=== PATIENT | male | born 1980 | race Caucasian/White ===

== ENCOUNTER 2020-08-18 12:58 | Emergency (ER) | payer OTHER, SELFPAY ==
[2020-08-18 13:08] VITALS: BP 135/89; PULSE 61; RESP 20; TEMP 36.7; O2SAT 100
--- NOTE | 2020-08-18 13:12 | ED.SKABFB ---
HPI - Skin/Abscess/Foreign Bdy General Chief complaint: Skin/Abscess/Foreign Body Stated complaint: shingles Time Seen by Provider: 08/18/20 13:15 Source: patient Mode of arrival: ambulatory Limitations: no limitations History of Present Illness HPI narrative: Chan Jean-Baptiste is a 40 yo male with a PMH of HTN, gout , who comes to express care with complaints of tingling on R chest wall the last few days. He states he had a little discomfort on his thigh also but is really concerned that this may be related to shingles because he states that it feels very similar to what he experienced last time he had an episode of shingles. Incidentally the patient is also had bouts of SVT in the last couple of months and cardiology work-up scheduled for August;he states that he is anxious but attributes it also to the same stress everyone else has with being involved in a pandemic Patient has developed hypertension and now periods of SVT in the last 6 months and he is scheduled to have a cardiology work-up and consult in August Related Data Home Medications Medication Instructions Recorded Confirmed allopurinol 300 mg tablet 300 mg PO DAILY 04/18/20 08/18/20 lisinopril 10 mg PO DAILY 08/18/20 08/18/20 metoprolol succinate 25 mg PO DAILY 08/18/20 08/18/20 Allergies Allergy/AdvReac Type Severity Reaction Status Date / Time Penicillins Allergy Unknown Unknown Verified 04/18/20 14:29 Review of Systems Review of Systems: Narrative: CONSTITUTIONAL: Denies fever, chills, sweats. EYES: Denies visual changes, redness, discharge. ENT: Denies rhinorrhea, congestion, sore throat, otalgia. CARDIOVASCULAR: Denies chest pain, palpitations, edema. RESPIRATORY: Denies dyspnea, wheezing, cough GASTROINTESTINAL: Denies abdominal pain, nausea, vomiting, diarrhea. GENITOURINARY: Denies dysuria, hematuria, abnormal discharge SKIN: Denies rash or itching. Has hypersensitivity on area of skin at rib 3 through 5 on the right side, some uncomfortable feeling on the right NEUROLOGIC: Denies numbness, or focal weakness. PSYCHIATRIC: Denies anxiety or depression. [facility] Past Medical History Medical History Gout Healthy adult HTN (hypertension) SVT (supraventricular tachycardia) Surgical History Surgical History Hx of tonsillectomy Family History Family History Father Hypertension Sibling Hypertension Social History Social History Smoking status: Never smoker Second hand tobacco smoke exposure: No Alcohol intake: current Substance use: never Substance use type: does not use Gender identity (if verbalized by the patient): Male Comments At time of signature, I agree with nursing past medical, surgical, social and family history. There is no relevant family history pertinent to the presenting complaint. Exam Narrative: Exam Narrative: GENERAL: This is a well-nourished, well-developed patient, in mild distress. HEAD: normocephalic, atraumatic. EYES: PERRL. Sclera clear/white. Vision is grossly intact. EARS: External ears normal, auditory canals clear and without drainage, TMs normal without perforation. Hearing grossly intact. NOSE: External nose normal without nasal discharge, nares without redness, no rhinorrhea. THROAT: Mucous membranes moist, posterior pharynx NECK: Neck supple, non-tender CARDIOVASCULAR: Regular rate and rhythm without murmurs, gallops, or rubs. RESPIRATORY: Clear to auscultation. Breath sounds equal bilaterally. No wheezes, rales, or rhonchi. GASTROINTESTINAL: Abdomen soft, non-tender, SKIN: warm, intact with no suspicious lesions or rash, good texture and turgor.has tingling and mild tenderness R chest wall, ribs 3-4, similar feeling R upper thigh. Is not reproducible. NEURO: awake, alert, and orien
[2020-08-18 13:27] VITALS: BP 135/89; PULSE 61; RESP 20; TEMP 36.7; O2SAT 100
== END 2020-08-18 13:42 | disposition home or self-care (01) ==
PROVIDERS: Emergency Provider Nurse Practitioner; PCP Family Medicine
DX: R20.0 Anesthesia of skin (principal); R20.2 Paresthesia of skin; M10.9 Gout, unspecified; I10 Essential (primary) hypertension
CPT/HCPCS: 99213; G0463

== ENCOUNTER 2023-01-06 13:26 | Emergency (ER) | payer OTHER, SELFPAY ==
[2023-01-06 13:49] VITALS: BP 147/82; PULSE 65; RESP 18; TEMP 36.2; O2SAT 98
--- NOTE | 2023-01-06 14:08 | ED.EAR ---
HPI - Ear Problem General Chief complaint: Ear Stated complaint: bilateral ear pain Time Seen by Provider: 01/06/23 14:03 Source: patient and RN notes reviewed Mode of arrival: ambulatory Limitations: no limitations History of Present Illness HPI Narrative: 42 a male presents concern for bilateral ear pain, worse on the right. He reports symptoms started several days ago. He denies nasal congestion, rhinorrhea, sore throat, fever, drainage from the ear. He has been using Flonase. MD Complaint: ear pain Related Data Home Medications Medication Instructions Recorded Confirmed allopurinol 300 mg tablet 300 mg PO DAILY 04/18/20 01/06/23 lisinopril 10 mg tablet 10 mg PO DAILY 08/18/20 01/06/23 Allergies Allergy/AdvReac Type Severity Reaction Status Date / Time Penicillins Allergy Unknown Unknown Verified 01/06/23 14:09 Review of Systems Review of Systems: CONSTITUTIONAL: Denies malaise, chills, sweats, or fever. EYES: Denies visual changes, redness, or discharge. ENT: Denies rhinorrhea, congestion, sinus pain, and sore throat. Reports bilateral ear pain CARDIOVASCULAR: Denies chest pain, palpitations, or edema. RESPIRATORY: Denies cough. Denies dyspnea. GASTROINTESTINAL: Denies abdominal pain, nausea, vomiting, diarrhea SKIN: Denies rash or itching. MUSCULOSKELETAL: Denies myalgia. NEUROLOGIC: Denies headache. All systems reviewed & are unremarkable except as noted in HPI and below PMFSH Past Medical History Medical History Gout Healthy adult HTN (hypertension) SVT (supraventricular tachycardia) Surgical History Surgical History Hx of tonsillectomy Family History Family History Father Hypertension Sibling Hypertension Social History Social History Smoking status: Never smoker Second hand tobacco smoke exposure: No Alcohol intake: current Substance use: never Substance use type: does not use Gender identity (if verbalized by the patient): Male Comments At time of signature, agree with nursing past medical, surgical, social and family history. There is no relevant family history pertinent to the presenting complaint Exam Narrative: GENERAL: Well-appearing, well-nourished, and in no acute distress. HEAD: Normocephalic EYES: PERRLA, conjunctivae clear ENT: Nares clear, turbinates edematous and erythematous, clear discharge. Mucous membranes moist. TM pearly goldsmith with dull light reflex bilaterally; no tragal tenderness. Oropharynx not erythematous without lesions. Tonsils not enlarged and without exudate, no drooling, no hoarseness, no trismus, uvula midline. NECK: Supple. No lymphadenopathy CHEST: Clear to auscultation, breath sounds equal. No wheezing, rhonchi, rales, or stridor. No respiratory distress, speaks in full sentences. HEART: Regular rate and rhythm. No murmur heard. SKIN: Warm, dry, no rash. NEURO: Alert and oriented x3. PSYCH: Normal mood and affect Course Course Emergency Course: Patient is aware of diagnosis, understands and agrees to treatment plan. Anticipatory guidance given. Patient agrees to follow-up as directed and is aware of reasons to seek care at the emergency department. Portions of this record may have been created with voice recognition software Level of Care: Express Care Visit Vital Signs Vital signs: Vital Signs Temperature 97.1 F L 01/06/23 13:49 Pulse Rate 65 01/06/23 13:49 Respiratory Rate 18 01/06/23 13:49 Blood Pressure 147/82 H 01/06/23 13:49 Pulse Oximetry 98 01/06/23 13:49 Oxygen Delivery Room Air 01/06/23 13:49 Temperature 97.1 F L 01/06/23 13:49 Pulse Rate 65 01/06/23 13:49 Respiratory Rate 18 01/06/23 13:49 Blood Pressure 147/82 H 01/06/23 13:49 Pulse Oximetry 98 01/06/23
== END 2023-01-06 14:17 | disposition home or self-care (01) ==
PROVIDERS: Emergency Provider Nurse Practitioner; PCP Family Medicine
DX: H73.892 Other specified disorders of tympanic membrane, left ear (principal); M10.9 Gout, unspecified; I10 Essential (primary) hypertension
CPT/HCPCS: 99213; G0463

== ENCOUNTER 2023-03-19 13:56 | Emergency (ER) | payer OTHER, SELFPAY ==
[2023-03-19 14:05] VITALS: BP 137/80; PULSE 59; RESP 16; TEMP 36.3; O2SAT 97
--- NOTE | 2023-03-19 14:27 | ED.URI ---
HPI - URI/Sore Throat General Chief Complaint: Upper Respiratory Infection Stated Complaint: Cough Time Seen by Provider: 03/19/23 14:15 Source: patient Mode of arrival: ambulatory Limitations: no limitations History of Present Illness HPI Narrative: Chan is a 42-year-old male patient presenting to the clinic today with complaints of a cough, runny nose, headache, and slight sore throat x4 days. He denies any fever or chills. Did at home COVID test and it was negative. Is concerned that he may have strep. MD elicited complaint: sore throat and nasal congestion Related Data Home Medications Medication Instructions Recorded Confirmed allopurinol 300 mg tablet 300 mg PO DAILY 04/18/20 03/19/23 lisinopril 10 mg tablet 10 mg PO DAILY 08/18/20 03/19/23 Allergies Allergy/AdvReac Type Severity Reaction Status Date / Time Penicillins AdvReac Mild Hives Verified 03/19/23 13:58 Review of Systems Review of Systems: Pertinent positives per HPI. Patient denies any fever, chills, rash, headache, visual changes, dizziness, cough, shortness of breath, chest pain, palpitations, nausea, vomiting, diarrhea, constipation, abdominal pain, or any urinary issues. PMFSH Past Medical History Medical History Gout Healthy adult HTN (hypertension) SVT (supraventricular tachycardia) Surgical History Surgical History Hx of tonsillectomy Family History Family History Father Hypertension Sibling Hypertension Social History Social History Smoking status: Never smoker Second hand tobacco smoke exposure: No Alcohol intake: current Substance use: never Substance use type: does not use Gender identity (if verbalized by the patient): Male Comments At the time of my signature, I reviewed and agree with the nursing past medical, surgical, social, and family history. There is no relevant family history pertinent to the patient complaint. Exam Narrative: General: Well-developed, well nourished, in no apparent distress Head: Normocephalic, atraumatic Eyes: Pupils equally round and reactive to light bilaterally, EOM intact, sclera and conjunctive clear, no discharge, lids normal Ears: TMs intact and clear, ear canals clear, no drainage, grossly hearing normal. Nose: Nares patent, clear nasal discharge, no inflammation, no sinus tenderness. Mouth: Oral pharynx red without lesions or masses, good dentition, MMM. Neck: Supple, trachea midline, no enlargement of anterior or posterior cervical nodes, no thyroid masses or goiter palpable. Cardio: Regular rate and rhythm, s1 and s2 normal, no murmur appreciated. Resp: Clear to auscultation bilaterally, no rhonchi, rales, wheezing or rubs Course Course Emergency Course: Portions of this record may have been created with voice recognition software. Level of Care: Express Care Visit Vital Signs Vital signs: Vital Signs Temperature 36.3 C L 03/19/23 14:05 Pulse Rate 59 L 03/19/23 14:05 Respiratory Rate 16 03/19/23 14:05 Blood Pressure 137/80 03/19/23 14:05 Pulse Oximetry 97 03/19/23 14:05 Oxygen Delivery Room Air 03/19/23 14:05 Temperature 36.3 C L 03/19/23 14:05 Pulse Rate 59 L 03/19/23 14:05 Respiratory Rate 16 03/19/23 14:05 Blood Pressure 137/80 03/19/23 14:05 Pulse Oximetry 97 03/19/23 14:05 Oxygen Delivery Room Air 03/19/23 14:05 Vital signs reviewed MDM - URI/Sore Throat MDM Narrative Medical decision making narrative: At the time of visit patient is resting comfortably on the exam table. Patient appears to be nontoxic. Strep test was negative in the clinic today. I suspect patient has URI/pharyngitis. Supportive measures were discussed with the patient and they voiced understanding di
== END 2023-03-19 14:31 | disposition home or self-care (01) ==
PROVIDERS: Emergency Provider Nurse Practitioner Family; PCP Family Medicine
DX: B34.9 Viral infection, unspecified (principal); J06.9 Acute upper respiratory infection, unspecified; J02.9 Acute pharyngitis, unspecified; M10.9 Gout, unspecified; I10 Essential (primary) hypertension
CPT/HCPCS: 87081; 87880; 99213; G0463

== ENCOUNTER 2024-07-15 18:44 | Emergency (ER) | payer OTHER, SELFPAY ==
--- NOTE | ~2024-07-15 | XR_ITS ---
XR finger 3rd RT min 2V Ordering provider: Delano Law APRN History: . distal finger injury/smash . Comparison: None. FINDINGS: BONES: No acute fracture or dislocation. JOINT SPACES: Normal. SOFT TISSUES: Small radiopaque foreign bodies seen in the tip of the soft tissues of the distal phala nx of the middle finger. Clinical correlation advised. IMPRESSION: No acute osseous abnormality. Foreign body in the soft tissues of the middle finger distal phalanx area. Reviewed, dictated and finalized at location A.
--- NOTE | 2024-07-15 18:46 | ED_ITS ---
HPI - Extremity Injury (Upper) General Chief Complaint: Extremity Problem,Nontraumatic Stated Complaint: finger nail injury Time Seen by Provider: 07/15/24 18:46 Source: patient Mode of arrival: ambulatory Limitations: no limitations History of Present Illness HPI narrative: Chan is a 44-year-old male patient presenting to the clinic today with complaints of a right middle distal finger injury. 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 Her stones and smashed his finger in between 2 of the stones. Has a skin avulsion to the tip of the right 3rd finger without nail involvement. Bleeding is controlled. Tetanus is not up today. Rates his pain currently a 1 at 10 Related Data Allergies Allergy/AdvReac Type Severity Reaction Status Date / Time Penicillins Allergy Mild Hives Verified 07/15/24 18:53 Review of Systems Review of Systems: Pertinent positives per HPI. Patient denies any fever, chills, rash, headache, visual changes, dizziness, cough, shortness of breath, chest pain, palpitations, nausea, vomiting, diarrhea, constipation, abdominal pain, or any urinary issues. PMFSH Past Medical History Medical History Dysfunction of both eustachian tubes Essential (primary) hypertension Gout History of paroxysmal supraventricular tachycardia Mixed hyperlipidemia Recurrent otitis media of both ears Surgical History Surgical History History of hand surgery Middle finger of right hand in 11/1997 History of radiofrequency ablation (RFA) procedure for cardiac arrhythmia 2021 Hx of tonsillectomy 1984 Family History Family History Father Hypertension Sibling Hypertension Mother Hypertension Grandparent Cerebrovascular accident Social History Social History Smoking status: Never smoker Second hand tobacco smoke exposure: No Alcohol intake: current Alcohol use details: About 1-2 drinks per month Substance use: never Substance use type: does not use Do You Feel Safe in your Home?: Yes Lack of Transportation: No Lack of Food: Never True Current Housing: I Have Housing Concerned About Future Housing: No Difficulty Paying Gas/Electric Bills: No Difficulty Paying for Meds: No Currently Unemployed: No Education: Master's Degree or Higher Difficulty w/ Childcare or Family Care: No Living arrangements: with family Occupation/Education: occupation 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 There is no relevant family history pertinent to the patient complaint. Exam Narrative: General: Well-developed, well nourished, in no apparent distress Head: Normocephalic, atraumatic. Cardio: Regular rate and rhythm, s1 and s2 normal, no murmur appreciated. Resp: Clear to auscultation bilaterally, no rhonchi, rales, wheezing or rubs. Musculoskeletal: No deformity,tender to palpation over the distal right 3rd finger with skin flap laceration, grossly normal range of motion, muscle strength strong and equal, peripheral pulse strong, no edema, no cyanosis, normal gait and station Course Course Emergency Course: Portions of this record may have been created with voice recognition software. Level of Care: Express Care Visit Vital Signs Vital signs: Vital Signs Temperature 36.4 C 07/15/24 18:53 Pulse Rate 60 07/15/24 18:53 Respiratory Rate 18 07/15/24 18:53 Blood Pressure 122/71 07/15/24 18:53 Pulse Oximetry 100 07/15/24 18:53 Oxygen Delivery Room Air 07/15/24 18:53 Temperature 36.4 C 07/15/24 18:53 Pulse Rate 60 07/15/24 18:53 Respiratory Rate 18 07/15/24 18:53 Blood Pressure 122/71 07/15/24 18:53 Pulse Oximetry 100 07/15/24 18:53 Oxygen Delivery Room Air 07/15/24 18:53 Vital signs reviewed Procedures Laceration Laceration 1: Date: 07/15/24 Site: hand (3rd finger-right) Side (If applicable): right Size (cm): 1.5 Description: flap and irregular Depth: simple, single layer Local Anesthetic: lidocaine 1% Amount of anesthesia used (mL): 4 Pre-repair: wound explored, irrigated and irrigated extensively ====== Skin Level ====== Skin layer closed with: nylon Size (cm): 5-0 Number of sutures: 6 Technique: simple, interrupted ====== Subcutaneous Layer ====== ====== Muscle Layer ====== ====== Tendon Layer ====== Dressing: Verbal consent obtained for laceration repair. Risk and benefits explained and patient voiced understanding. Area was cleansed with antiseptic wound wash and a 27 gauge needle was then used to instill (for) ml of 1% lidocaine without epi into the distal PIP joint to create a digital block. Area was prepped and draped using sterile technique. A 5-0 suture on a p needle was used to place (6) interrupted sutures bringing the wound edges together- well approximated. Patient tolerated procedure well. Sterile dressing applied. MDM - Extremity Injury (Upper) MDM Narrative Medical decision making narrative: At the time of visit patient is resting comfortably on the exam table. Patient appears to be nontoxic. Diagnostics: X-ray shows no sign of fracture or malalignment of the right 3rd finger however there is some foreign bodies in the soft tissue of the skin Medications: Tdap 0.5 mL IM given in the clinic today Procedures: Laceration repair was performed in the clinic today. Wound was irrigated and foreign bodies were removed. Six interrupted sutures were placed for wound closure Plan: Patient has a right middle distal finger laceration. Laceration repair was performed. Wound edges were brought together well approximate. Foreign bodies were removed prior to suturing. Supportive measures were discussed with the patient and they voiced understanding discharge instructions and agrees to treatment plan. Return precautions reviewed Differential Diagnosis Differential diagnosis: Likely finger sprain, dislocation of finger and other (Tuft fracture, skin avulsion, laceration) Discharge Plan Discharge Clinical Impression: Finger laceration Qualifiers: Encounter type: initial encounter Finger: middle finger Damage to nail status: without damage Foreign body presence: without foreign body Laterality: right Qualified Code(s): S61.212A - Laceration without foreign body of right middle finger without damage to nail, initial encounter Patient Disposition: Home Condition: Stable Instructions: Antibiotic Form, Finger Laceration (ED) Additional Instructions: Tdap given in the clinic today X-ray was negative for any sign of fracture or malalignment but did show some small foreign body. This was irrigated out and cleansed before sutures Leave bandage on for 24 hours then may remove and apply band aide covering as needed. Keep wound clean and dry Skin sutures out in 7 days. Watch for signs and symptoms of infection- redness, streaking, swelling, purulent discharge, or increase in pain. Follow up with your PCP for suture removal or return to the Express care. Patient Language: Bermudian Prescriptions: No Action lisinopril 10 mg tablet 10 mg PO DAILY Qty: 90 2RF allopurinol 300 mg tablet 300 mg PO DAILY Qty: 90 2RF Follow-up/Referrals: Alberto Fields MD [Primary Care Provider] - Time of Disposition: 19:46 Quality NIHSS Nursing Documentation ED NIHSS nursing documentation: reviewed/agree
--- OUTSIDE RECORDS SUMMARY | 2024-07-15 18:47 | XMS_ITS | Continuity of Care Document ---
Author Organization [facility] Address [address] [facility] [address] [place] [address] Phone Care Team Providers Care Supervisor Major Appliance Assembly Name Role Phone Sterling Carranza PT Unavailable Unavailable Procedures Procedure Date Therapeutic Activities Neuromuscular Re-Ed Therapeutic Exercise Therapeutic Activities Neuromuscular Re-Ed Therapeutic Exercise Therapeutic Activities Neuromuscular Re-Ed Therapeutic Exercise PT Re-evaluation Therapeutic Activities Neuromuscular Re-Ed Therapeutic Exercise Therapeutic Activities Neuromuscular Re-Ed Therapeutic Exercise Therapeutic Activities Neuromuscular Re-Ed Therapeutic Exercise PT Evaluation Low Complexity Therapeutic Activities Neuromuscular Re-Ed Therapeutic Exercise Advance Directives Directive Yes / No Effective Date File Name No Information Encounters Encounter Description Practice Location Reason(s) For Visit Diagnoses Date Provider Providers Copied on Encounter [facility] [address], [place], [place], [id number], tel:[phone] [facility] No Information Dillon Katz. . Referring Provider: [facility] [address], [place], [place], [id number], tel:[phone] [facility] No Information Dillon Celestin . Referring Provider: [facility]. [address], [id number], tel:[phone] [facility] No Information Dillon Celestin . Referring Provider: [facility]. [address], [id number], tel:[phone] [facility] No Information Dillon Celestin . Referring Provider: [facility]. [address], [id number], tel:[phone] [facility] No Information Dillon Celestin . Referring Provider: [facility]. [address], [id number], tel:[phone] [facility] No Information Dillon Celestin . Referring Provider: [facility]. [address], [id number], tel:[phone] [facility] No Information Dillon Celestin . Referring Provider: [facility]. Family History Family Member Type Diagnosis Age At Onset No Information Payers Payer name Insurance type Covered constitution party ID Authoriza tion(s) [employer] CI [id number] Social History Type Description Quantity Date Captured Comments Sex Male Smoking Status No Information Chief Complaint And Reason For Visit No Information Reason For Referral Reason For Referral No Information History Of Present Illness Encounter Date Complaint History Of Prese nt Illness No Information Functional Status Date Functional Assessmen t No Information Instructions Date Instruction Additional Infor mation No Information Assessments Type Assessment Date No Information Patient Care Teams Name Effective Dates (start - stop) Status Members No Information
--- OUTSIDE RECORDS SUMMARY | 2024-07-15 18:47 | XMS_ITS | Clinical Summary ---
Author Organization [facility] Address [address] [facility] [place] [address] Phone Care Team Providers Care Job Developer Name Role Phone Unavailable Primary Care Provider Unavailabl e Allergies Active Allergy Reactions Criticality Noted Date Comments Penicillins Rash Medium 03/21/2017 Medications allopurinoL (ZYLOPRIM) 100 mg tablet Take 25 mg by mouth daily. 06/04/2020 Active lisinopriL (PRINIVIL) 10 mg tablet Take 10 mg by mouth daily. 06/04/2020 Active metoprolol tartrate (LOPRESSOR) 25 mg tablet Take 25 mg by mouth daily. 06/04/2020 Active Social History Tobacco Use Types Packs/Day Years Used Date Smoking Tobacco: Never Smokeless Tobacco: Never Alcohol Use Standard Drinks/Week Comments Yes 2 (1 standard drink = 0.6 oz pur e alcohol) Sex and Gender Information Value Date Recorded Sex Assigned at Not on file Legal Sex Male 4:40 PM CDT Gender Identity Not on file Sexual Orientation Not on file Last Filed Vital Signs Vital Sign Reading Time Taken Comments Blood Pressure 113/85 06/04/2020 10:45 PM CDT Pulse 75 06/04/2020 10:45 PM CDT Temperature - - Respiratory Rate 20 06/04/2020 10:45 PM CDT Oxygen Saturation - - Inhaled Oxygen Concentration - - Weight - - Height - - Body Mass Index - - Plan of Treatment Health Maintenance Due Date Last Done Comments DTAP/TDAP/TD VACCINES (1 - Tdap) 1997 HEPATITIS B VACCINES (1 of 3 - 19+ 3-dose series) 1997 COLORECTAL SCREENING 06/19/2023 Colorectal Cancer Screening 06/19/2023 FIT-DNA Q 3 years 06/19/2023 FIT/FOBT Q 1 year 06/19/2023 Flex Sig/CT Colonography Q 5 years 06/19/2023 INFLUENZA VACCINE (#1) 2023 HPV VACCINES Aged Out No longer eligi ble based on patient's age to complete this topic
--- OUTSIDE RECORDS SUMMARY | 2024-07-15 18:47 | XMS_ITS | Clinical Summary ---
Author Organization [facility] [address] Address [address] [place] [address] Care Team Providers Care Movie Theater Manager Name Role Phone Alberto Fields MD Primary Care Provider [phone] Allergies Active Allergy Reactions Criticality Noted Date Comments Penicillins Rash Medium 06/05/2016 Medications allopurinoL (ZYLOPRIM) 100 mg tablet Take 25 mg by mouth daily Active lisinopriL (PRINIVIL,ZESTRI L) 10 mg tablet Take 10 mg by mouth daily Active aspirin 81 mg enteric coated tabletIndication s:prevention of thrombosis Take 1 tablet (81 mg total) by mouth daily 90 tablet 11/18/2020 Active Active Problems Problem Noted Date Diagnosed Date SVT (supraventricular tachycardia) 09/03/2020 Assessment & Plan (10/30/2020 2:21 PM CDT): Narrow complex short RP tachycardia. Differential diagnosis includes AVNRT, AVRT (with concealed retrograde accessory pathway conduction), or atrial tachycardia/flutter. We discussed options for management, and the patient is specifically interested in catheter ablation. We discussed the specific risks, including vascular injury, hematoma, perforation, stroke, heart attack, and AV fouzia injury. I estimated his risk of these events to be very low. We discussed the benefits of ablation, and I estimated a 95-98% chance of freedom from arrhythmia going forward. The patient would like to proceed, and my office will make the appropriate arrangements. Medical History Medical History Date Comments Hypertension Kidney stones Family History Medical History Relation Name Comments Hypertension Brother Hypertension Father Diabetes Mother Hypertension Mother Relation Name Status Comments Brother Alive Father Alive Mother Alive Sister Alive Social History Tobacco Use Types Packs/Day Years Used Date Smoking Tobacco: Never Smokeless Tobacco: Never AUDIT-C Answer Date Recorded Q1: How often do you have a drink containing alc ohol? 2-3 times a week 11/18/2020 Q2: How many drinks containi ng alcohol do you have on a typical day when you are drinking? 1 or 2 11/18/2020 Frequency of Binge Drinking Not on file 10/22 Personal Safety Answer Date Recorded Getting School Help Needed Not on file 06/05 Sex and Gender Information Value Date Recorded Sex Assigned at Not on file Legal Sex Male 3:52 PM CDT Gender Identity Not on file Sexual Orientation Not on file Obstetrics History Last Filed Vital Signs Vital Sign Reading Time Taken Comments Blood Pressure 116/78 12/05/2020 1:20 PM CDT Pulse 61 12/05/2020 1:20 PM CDT Temperature 35.2 C (95.4 F) 11/18/2020 9:43 AM CDT Respiratory Rate 22 11/18/2020 4:30 PM CDT Oxygen Saturation 97% 12/05/2020 1:20 PM CDT Inhaled Oxygen Concentration - - Weight 101.2 kg (223 lb) 12/05/2020 1:20 PM CDT Height 190.5 cm (6' 3 ) 12/05/2020 1:20 PM CDT Body Mass Index 27.87 12/05/2020 1:20 PM CDT Plan of Treatment Not on file Medical Devices Implanted Type Area Cafeteria Cashier Device Identifier Shelf Expiration Date Model / Serial / Lot [email or web address] [id number] System 6-12fr Mvp Venous Closure Vascade - [id number] - [id number] Implanted:Qty: 1 on 11/18/2020 by Lalo Terrell MD at [facility] [employer] 08/26/2022 800-612C-1 0U / [id number] / [id number] [employer] [id number] System 6-12fr Mvp Venous Closure Vascade - [id number] - [id number] Implanted:Qty: 1 on 11/18/2020 by Lalo Terrell MD at [facility] [employer] 09/09/2022 800-612C-1 0U / [id number] / [id number] [employer] [id number] Device Closure Vascade Od5 Fr Femoral Artery - [id number] - [id number] Implanted:Qty: 1 on 11/18/2020 by Lalo Terrell MD at [facility] [employer] 08/12/2022 700-500DX- 05U / [id number] / [id number] [employer] [id number] System 6-12fr Mvp Venous Closure Vascade - [id number] - [id number] Implanted:Qty: 1 on 11/18/2020 by Lalo Terrell MD at [facility] [employer] 08/26/2022 800-612C-1 0U / [id number] / [id number] Insurance [facility] Care Teams Movie Theater Manager Relationship Specialty Start Date End Date Alberto Fields MD [address] [place] [id number] PCP - General Family Medicine 07/24/20
--- OUTSIDE RECORDS SUMMARY | 2024-07-15 18:47 | XMS_ITS | Referral Summary ---
Author Organization [facility] [place] [address] Address [address] [place] [address] Care Team Providers Care Harness Maker Name Role Phone Alberto Fields MD Primary Care Provider [phone] Allergies Active Allergy Reactions Criticality Noted Date [...] my office will make the appropriate arrangements. Social History Tobacco Use Types Packs/Day Years [...] on file Medical Devices Implanted Type Area Industrial Maintenance Manager Device Identifier Shelf Expiration Date Model / Serial / Lot [employer] [id number] System 6-12fr Mvp Venous Closure Vascade - [id number] - [id number] Implanted:Qty: 1 on 11/18/2020 by Lalo Terrell MD at [facility] [employer] 08/26/2022 800-612C-1 0U / [id number] / [id number] [employer] [id number] System 6-12fr Mvp Venous Closure Vascade - [id number] - [id number] Implanted:Qty: 1 on 11/18/2020 by Lalo Terrell MD at [facility] [employer] 09/09/2022 800-612C-1 0U / [id number] / [id number] [employer] [id number] Device Closure Vascade Od5 Fr Femoral Artery - [id number] - [id number] Implanted:Qty: 1 on 11/18/2020 by Lalo Terrell MD at [facility] [employer] 08/12/2022 700-500DX- 05U / [id number] / [id number] [employer] [id number] System 6-12fr Mvp Venous Closure Vascade - [id number] - [id number] Implanted:Qty: 1 on 11/18/2020 by Lalo Terrell MD at [facility] [employer] 08/26/2022 800-612C-1 0U / [id number] / [id number] Insurance [facility] Care Teams Harness Maker Relationship Specialty Start Date End Date Alberto Fields MD [address] [place] [id number] PCP - General Family Medicine 07/24/20
--- OUTSIDE RECORDS SUMMARY | 2024-07-15 18:47 | XMS_ITS | Clinical Summary ---
Author Organization [facility] Address [address] [place] [address] Care Team Providers Care Rail Express Clerk Name Role Phone Unavailable Primary Care Provider Unavailabl e Source Comments [facility],non-owned Affiliates and Associated Physician Practices is amultiple site organization consisting of ambulatory clinics and hospital sitesin [place], [place], [place] and [place]. This disclosure is being madepursuant to the Care Everywhere program and may not contain all information available regarding this patient. Last updated 17.[facility] Allergies Active Allergy Reactions Criticality Noted Date Comments Penicillins 06/05/2016 Medications * Be aware that medications may not be up to date on this document. Alwaysverify current medications with the patient. benzonatate (TESSALON) 200 MG capsule Take 1 Cap by mouth 3 times daily as needed for Cough 30 Cap 06/05/2016 Active Social History Tobacco Use Types Packs/Day Years Used Date Smoking Tobacco: Never Sex and Gender Information Value Date Recorded Sex Assigned at Not on file Legal Sex Male 1:10 PM DESCRIPTIVE CATALOG LIBRARIAN Gender Identity Not on file Sexual Orientation Not on file Last Filed Vital Signs Vital Sign Reading Time Taken Comments Blood Pressure 118/76 06/05/2016 9:08 AM CDT Pulse 61 06/05/2016 9:08 AM CDT Temperature 37.2 C (99 F) 06/05/2016 9:08 AM CDT Respiratory Rate 16 06/05/2016 9:08 AM CDT Oxygen Saturation 99% 06/05/2016 9:08 AM CDT Inhaled Oxygen Concentration - - Weight 97.5 kg (215 lb) 06/05/2016 9:08 AM CDT Height 190.5 cm (6' 3 ) 06/05/2016 9:08 AM CDT Body Mass Index 26.87 06/05/2016 9:08 AM CDT Plan of Treatment Health Maintenance Due Date Last Done Comments COLOGUARD (AGES 45-75) - COL ON CA SCREENING 1978 COLON MONITORING 1978 COLONOSCOPY - COLON CA SCREENING 1978 CT COLONOGRAPHY - COLON CA SCREENING 1978 Colorectal Cancer Screening 1978 FIT - COLON CA SCREENING 1978 FLEX SIG - COLON CA SCREENING 1978 LIPID TESTING 1978 HIV SCREENING 1993 HEPATITIS C SCREENING 06/13/1996 DTAP/TDAP/TD VACCINES (1 - Tdap) 1997 HEPATITIS B VACCINE (1 of 3 - 19+ 3-dose series) 1997 COVID-19 VACCINE ( - 2023-2 5 season) 2023 DEPRESSION SCREENING 03/22/2024 INFLUENZA VACCINE (Season Ended) 2024 ZOSTER VACCINE (1 of 2) 2028 HIB VACCINE Aged Out No longer eligi ble based on patient's age to complete this topic HPV VACCINE Aged Out No longer eligi ble based on patient's age to complete this topic MENINGOCOCCAL (Group B) VACC INE SHARED DECISION-MAKING Aged Out No longer eligibl e based on patient's age to complete this topic MENINGOCOCCAL GROUPS A/C/Y/W VACCINE Aged Out No longer eligible b ased on patient's age to complete this topic PNEUMOCOCCAL VACCINE Aged Out No long er eligible based on patient's age to complete this topic Insurance [facility] Member Subscriber Plan / Payer (Ef fective 2016-Present) Name:Chan Jean-Baptiste Relation to Subscriber:Self Name:Chan Jean-Baptiste Payer ID:[id number] (NAIC) Type:HMO Address: [facility] [id number] [place] [id number]
--- OUTSIDE RECORDS SUMMARY | 2024-07-15 18:47 | XMS_ITS | Clinical Summary ---
Author Organization [facility] Address [address] [place] [id number] Care Team Providers Care Composing Machine Operator/Tender Name Role Phone Unavailable Primary Care Provider Unavailabl e Social History Tobacco Use Types Packs/Day Years Used Date Smoking Tobacco: Never Assessed Sex and Gender Information Value Date Recorded Sex Assigned at Not on file Legal Sex Male 8:08 AM CDT Gender Identity Not on file Sexual Orientation Not on file Plan of Treatment Health Maintenance Due Date Last Done Comments Colorectal Cancer Screening Colonoscopy (10 Years) 1978 Annual Physical 1981 Hepatitis C 1996 DTaP, Tdap and Td Vaccines ( 1 - Tdap) 1997 Hepatitis B Vaccines (1 of 3 - 19+ 3-dose series) 1997 COVID-19 Vaccine (2023-2 5 season) 2023 HPV Vaccines Aged Out No longer eligi ble based on patient's age to complete this topic Meningococcal B Vaccine Aged Out No l onger eligible based on patient's age to complete this topic Meningococcal Vaccine Aged Out No nathalia irais eligible based on patient's age to complete this topic Pneumococcal Vaccine: Pediat rics (0 to 5 Years) and At-Risk Patients (6 to 49 Years) Aged Out No longer eligible b ased on patient's age to complete this topic RSV Immunizations Under 20 Months Aged Out No longer eligible based on patient's age to complete this topic
--- OUTSIDE RECORDS SUMMARY | 2024-07-15 18:48 | XMS_ITS | Continuity of Care Document ---
Author Organization [facility] Address [address] [place] [address] Phone Care Team Providers Care Leadite Heater Name Role Phone Sterling Carranza PT Unavailable [...] Date Provider Providers Copied on Encounter [facility] [address], [place], [place], [id number], tel:[phone] [facility] No Information Dillon Katz. . Referring Provider: Access Direct. [facility] [address], [place], [place], [id number], tel:[phone] [facility] No Information Dillon Celestin . Referring Provider: [facility] Direct. [address], [id number], tel:[phone] [facility] No Information Dillon Celestin . Referring Provider: [facility] Direct. [address], [id number], tel:[phone] [facility] No Information Dillon Celestin . Referring Provider: [facility] Direct. [address], [id number], tel:[phone] [facility] No Information Dillon Celestin . Referring Provider: Access Direct. [address], [id number], tel:[phone] [facility] No Information Dillon Celestin . Referring Provider: [facility]. [address], [id number], tel:[phone] [facility] No Information Dillon Celestin . Referring Provider: Access Direct. Family History Family Member Type Diagnosis Age At Onset No Information Payers Payer name Insurance type Covered republican ID Authoriza tion(s) UMR CI [id number] Social History Type Description Quantity Date Captured [...]
[2024-07-15 18:53] VITALS: BP 122/71; PULSE 60; RESP 18; TEMP 36.4; O2SAT 100
[2024-07-15] MEDS: TETANUS,DIPHTHERIA,AC PERTUSSIS ADULT (0.5 ML) BOOSTRIX IM (19:06)
[2024-07-15] MEDS: LIDOCAINE 1% LOCAL INJ 2 ML AMPUL 4 ML INFILTRATE (19:19)
== END 2024-07-15 19:49 | disposition home or self-care (01) ==
PROVIDERS: Emergency Provider Nurse Practitioner Family; PCP Family Medicine
DX: S61.212A Laceration without foreign body of right middle finger without damage to nail, initial encounter (principal); W22.8XXA Striking against or struck by other objects, initial encounter; Z23 Encounter for immunization; I10 Essential (primary) hypertension; M10.9 Gout, unspecified; E78.2 Mixed hyperlipidemia
CPT/HCPCS: 12001; 73140; 90471; 90715; 99213; G0463; J2003

== ENCOUNTER 2024-07-22 16:01 | Emergency (ER) | payer OTHER, SELFPAY ==
--- NOTE | 2024-07-22 16:02 | ED_ITS ---
HPI - Wound/Laceration General Chief Complaint: Wound/Laceration Stated Complaint: Stitches removed Time Seen by Provider: 07/22/24 16:02 Source: patient Mode of arrival: ambulatory Limitations: no limitations History of Present Illness HPI narrative: Patient is a 44-year-old male who presents for suture removal. Patient had sutures placed 07/15 here. denies any redness, drainage or other complications. Related Data Allergies Allergy/AdvReac Type Severity Reaction Status Date / Time Penicillins Allergy Mild Hives Verified 07/22/24 16:03 Review of Systems 2 Review of Systems: All systems reviewed & are unremarkable except as noted in HPI and below Constitutional: Constitutional: Denies body ache(s), Denies chills, Denies fatigue, Denies fever(s), Denies headache(s), Denies malaise and Denies weakness Eyes: Eyes: Denies blurry vision, Denies irritation and Denies loss of vision ENT: Denies otalgia, Denies headache(s), Denies nasal discharge, Denies sinus pain and Denies sore throat Cardiovascular: Cardiovascular: Denies chest pain, Denies irregular heart rhythm and Denies dyspnea Respiratory: Respiratory: Denies dyspnea Gastrointestinal: Gastrointestinal: Denies abdominal pain, Denies melena, Denies hematochezia, Denies diarrhea, Denies nausea and Denies vomiting Musculoskeletal: Musculoskeletal: Denies back pain, Denies myalgias and Denies arthralgias Integumentary/Breasts: Skin/Breast: Denies pruritus, Denies rash and Reports wounds Neurologic: Denies headache(s), Denies loss of vision and Denies weakness Psychiatric: Psychiatric: Reports no additional psychiatric complaints Endocrine: Endocrine: Denies fatigue PMFSH Past Medical History Medical History Mixed hyperlipidemia History of paroxysmal supraventricular tachycardia Essential (primary) hypertension Gout Dysfunction of both eustachian tubes Recurrent otitis media of both ears Surgical History Surgical History History of hand surgery Middle finger of right hand in 11/1997 History of radiofrequency ablation (RFA) procedure for cardiac arrhythmia 2021 Hx of tonsillectomy 1983 Family History Family History Father Hypertension Sibling Hypertension Mother Hypertension Grandparent Cerebrovascular accident Social History Social History Smoking status: Never smoker Second hand tobacco smoke exposure: No Alcohol intake: current Alcohol use details: About 1-2 drinks per month Substance use: never Substance use type: does not use Do You Feel Safe in your Home?: Yes Lack of Transportation: No Lack of Food: Never True Current Housing: I Have Housing Concerned About Future Housing: No Difficulty Paying Gas/Electric Bills: No Difficulty Paying for Meds: No Currently Unemployed: No Education: Master's Degree or Higher Difficulty w/ Childcare or Family Care: No Living arrangements: with family Occupation/Education: occupation 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 There is no relevant family history pertinent to the presenting complaint. Exam 2 Const: General: cooperative, healthy appearing, comfortable, no acute distress and well nourished Nutritional Appearance: well nourished O rientation/consciousness: patient oriented x3 Limitations: no limitations HENMT: Head: normal to inspection, normocephalic and atraumatic Ears: h earing grossly normal bilaterally and external ears normal Face/Nose/Sinus: N ormal external nose present, normal facial exam and face symmetric Face and sinus: normal facial exam and face symmetric Mouth: Yes lip normal Eyes: General: appearance normal, both eyes and all related structures A lignment and Position: alignment normal and position normal Periorbital: p eriorbital findings normal Eyelids: eyelids normal Pupils: Equal, round and reactive pupils present EOM: EOMs intact bilaterally Neck: Neck: normal visual inspection, full ROM and supple Chest: Chest palpation & inspection: normal inspection of the chest Resp: Effort & Inspection: normal respiratory effort and able to speak in complete sentences Auscultation: clear to auscultation bilaterally Cardio: Rate: regular rate Rhythm: regular rhythm Heart sounds: S1 normal heart sound present and S2 normal heart sound present GI: Inspection: normal to inspection Skin: General skin exam: normal color and no rashes or lesions noted Neuro: General: patient oriented x3 and moves all extremities Cranial nerves: Yes Equal, round and reactive pupils present Speech: normal speech Gait exam (Neuro): Normal gait present Extrem: General: normal to inspection, full ROM and no edema Hand/finger images: 1. area of healing. wound closed with minor ecchymosis. Six sutures present Psych: Appearance: grossly normal and well kempt Mental Status: mental status grossly normal Speech and movement: Normal speech and movement present Affect: normal affect Attitude: cooperative Thought process: Normal thought process present Course Course Emergency Course: Patient is aware of diagnosis, understands and agrees to treatment plan. Anticipatory guidance given. Patient agrees to follow-up as directed and is aware of reasons to seek care at the emergency department. Portions of this record may have been created with voice recognition software Level of Care: Express Care Visit Vital Signs Vital signs: Vital Signs Temperature 36.2 C L 07/22/24 16:07 Pulse Rate 61 07/22/24 16:07 Respiratory Rate 16 07/22/24 16:07 Blood Pressure 125/79 07/22/24 16:07 Pulse Oximetry 100 07/22/24 16:07 Oxygen Delivery Room Air 07/22/24 16:07 Temperature 36.2 C L 07/22/24 16:07 Pulse Rate 61 07/22/24 16:07 Respiratory Rate 16 07/22/24 16:07 Blood Pressure 125/79 07/22/24 16:07 Pulse Oximetry 100 07/22/24 16:07 Oxygen Delivery Room Air 07/22/24 16:07 Reviewed MDM - Wound/Laceration MDM Narrative Medical decision making narrative: 6 sutures removed. No complications, wound closed appropriately Pt well hydrated appearing, in no respiratory distress, hemodynamically stable. Recommend supportive care. The patient is stable at time of discharge the clinical impression was discussed and the patient was given the opportunity to ask questions, which were addressed as completely as possible given the information available at present. Anticipatory guidance and return to care precautions were discussed and the importance of primary care follow-up was stressed and encouraged. The patient voiced understanding of the plan, indications to return, and the need for follow-up. Exam findings show no acute concerns or changes Patient is appropriate for outpatient treatment and follow-up. Differential Diagnosis Differential diagnosis: Likely laceration Medical Records Attestation: I reviewed the patient's medical records. Discharge Plan Discharge Clinical Impression: Encounter for removal of sutures Patient Disposition: Home Condition: Stable Instructions: Finger Laceration (ED) Additional Instructions: AFTER the stitches are removed: Clean your wound as directed. Carefully wash your wound with soap and water. Pat the area dry with a clean towel. Protect your wound. Your wound can swell, bleed, or split open if it is stretched or bumped. You may need to wear a bandage that supports your wound until it is completely healed. How to minimize a scar: After sutures are removed, keep your scar out of the sun. Use sunblock if your wound is exposed to the sun. You may use OTC silicone pad and/or scar massage with ointment (for 10-15 min a day) after one month. Talk to your doctor if you think you are developing a keloid. Patient Language: Nepali Prescriptions: No Action lisinopril 10 mg tablet 10 mg PO DAILY Qty: 90 2RF allopurinol 300 mg tablet 300 mg PO DAILY Qty: 90 2RF Follow-up/Referrals: Alberto Fields MD [Primary Care Provider] - 1 Week Time of Disposition: 16:25
[2024-07-22 16:07] VITALS: BP 125/79; PULSE 61; RESP 16; TEMP 36.2; O2SAT 100
--- OUTSIDE RECORDS SUMMARY | 2024-07-22 16:44 | XMS_ITS | Continuity of Care Document ---
Author Organization [facility] Address [address] [place] [address] Phone Care Team Providers Care Winch Derrick Operator Name Role Phone Sterling Carranza PT Unavailable [...] Diagnoses Date Provider Providers Copied on Encounter [facility] [address], [place], [place], [id number], tel:[phone] [facility] No Information Dillon Katz. . Referring Provider: Access Direct. [facility] [address], [place], [place], [id number], tel:[phone] [facility] No Information Dillon Celestin . Referring Provider: Access Direct. [address], [id number], tel:[phone] [facility] No Information Dillon Celestin . Referring Provider: Access Direct. [address], [id number], tel:[phone] [facility] No Information Dillon Celestin . Referring Provider: Access Direct. [address], [id number], tel:[phone] [facility] No Information Dillon Celestin . Referring Provider: Access Direct. [address], [id number], tel:[phone] [facility] No Information Dillon Celestin . Referring Provider: Access Direct. [address], [id number], tel:[phone] [facility] No Information Dillon Celestin . Referring Provider: Access Direct. Family History Family Member Type Diagnosis Age At Onset No Information Payers Payer name Insurance type Covered republican ID Authoriza tion(s) UMR CI [id number] Social History Type Description Quantity Date Captured [...]
--- OUTSIDE RECORDS SUMMARY | 2024-07-22 16:44 | XMS_ITS | Continuity of Care Document ---
Author Organization [facility] Address [address] [facility] [address] [place] [address] Phone Care Team Providers Care Associate Professor Physician Name Role Phone Sterling Carranza PT Unavailable [...] Diagnoses Date Provider Providers Copied on Encounter [facility] [address], [place], [place], [id number], tel:[phone] [facility] No Information Dillon Katz. . Referring Provider: Access Direct. [facility] [address], [place], [place], [id number], tel:[phone] [facility] No Information Dillon Celestin . Referring Provider: Access Direct. [address], [id number], tel:[phone] [facility] No Information Dillon Celestin . Referring Provider: Access Direct. [address], [id number], tel:[phone] [facility] No Information Dillon Celestin . Referring Provider: Access Direct. [address], [id number], tel:[phone] [facility] No Information Dillon Celestin . Referring Provider: Access Direct. [address], [id number], tel:[phone] [facility] No Information Dillon Celestin . Referring Provider: Access Direct. [address], [id number], tel:[phone] [facility] No Information Diloln Celestin . Referring Provider: Access Direct. Family History Family Member Type Diagnosis Age At Onset No Information Payers Payer name Insurance type Covered democrat ID Authoriza tion(s) UMR CI [id number] Social History Type Description Quantity Date Captured [...]
--- OUTSIDE RECORDS SUMMARY | 2024-07-22 16:44 | XMS_ITS | Clinical Summary ---
Author Organization [facility] Address [address] [place] [address] Care Team Providers Care Recreation Program Specialist Name Role Phone Unavailable Primary Care Provider [...]
--- OUTSIDE RECORDS SUMMARY | 2024-07-22 16:44 | XMS_ITS | Clinical Summary ---
Author Organization [facility] [employer] Address [address] [place] [address] Care Team Providers Care Keeper Helper Name Role Phone Unavailable Primary Care Provider Unavailabl e Source Comments [facility],non-owned Affiliates and Associated Physician Practices is amultiple site organization consisting of ambulatory clinics and hospital sitesin [place], [place], [place] and [place]. This disclosure is being madepursuant to the Care Everywhere program and may not contain all information available regarding this patient. 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 Member Subscriber Plan / Payer (Ef fective 2016-Present) Name:Chan Jean-Baptiste Relation to Subscriber:Self Name:Chan Jean-Baptiste Payer ID:[id number] (NAIC) Type:HMO Address: [facility] [id number] [id number]
--- OUTSIDE RECORDS SUMMARY | 2024-07-22 16:44 | XMS_ITS | Referral Summary ---
Author Organization [facility] [address] Address [address] [place] [address] Care Team Providers Care Electrophysiology Technician Name Role Phone Alberto Fields MD Primary Care Provider [phone] Allergies Active Allergy Reactions Criticality Noted Date [...] on file Medical Devices Implanted Type Area Band Saw Filer Device Identifier Shelf Expiration Date Model / Serial / Lot [employer] [id number] System 6-12fr Mvp Venous Closure Vascade - [id number] - [id number] Implanted:Qty: 1 on 11/18/2020 by Lalo Terrell MD at [facility] Coll[employer] 08/26/2022 800-612C-1 0U / [id number] / [id number] [employer] [id number] System 6-12fr Mvp Venous Closure Vascade - [id number] - [id number] Implanted:Qty: 1 on 11/18/2020 by Lalo Terrell MD at [facility] [employer] 09/09/2022 800-612C-1 0U / [id number] / [id number] [employer] [id number] Device Closure Vascade Od5 Fr Femoral Artery - [id number] - [id number] Implanted:Qty: 1 on 11/18/2020 by Lalo Terrell MD at [facility] [employer] 08/12/2022 700-500DX- 05U / [id number] / [id number] [employer] [id number] System 6-12fr Mvp Venous Closure Vascade - [id number] - [id number] Implanted:Qty: 1 on 11/18/2020 by Lalo Terrell MD at [facility] [employer] 08/26/2022 800-612C-1 0U / [id number] / [id number] Insurance [facility] Address: [address] [id number] [facility] Address: [facility] [address] [place] [address] Care Teams Electrophysiology Technician Relationship Specialty Start Date End Date Alberto Fields MD [address] [place] [address] PCP - General Family Medicine 07/24/20
--- OUTSIDE RECORDS SUMMARY | 2024-07-22 16:44 | XMS_ITS | Clinical Summary ---
Author Organization [facility] [address] Address [address] [place] [address] Care Team Providers Care Speech Correction Consultant Name Role Phone Alberto Fields MD Primary Care Provider [phone] Allergies Active Allergy Reactions Criticality Noted Date [...] on file Medical Devices Implanted Type Area Radio Engineering Teacher Device Identifier Shelf Expiration Date Model / Serial / Lot [employer] [id number] System 6-12fr Mvp Venous Closure Vascade - [id number] - [id number] Implanted:Qty: 1 on 11/18/2020 by Lalo Terrell MD at [facility] Collagen [employer] 08/26/2022 800-612C-1 0U / [id number] / [id number] [employer] [id number]-[id number] System 6-12fr Mvp Venous Closure Vascade - [id number] - [id number] Implanted:Qty: 1 on 11/18/2020 by Lalo Terrell MD at [facility] Collagen [employer] 09/09/2022 800-612C-1 0U / [id number] / [id number] [employer] [id number] Device Closure Vascade Od5 Fr Femoral Artery - [id number] - [id number] Implanted:Qty: 1 on 11/18/2020 by Lalo Terrell MD at [facility] [employer]agen [employer] 08/12/2022 700-500DX- 05U / [id number] / [id number] [employer] [id number]-[id number] System 6-12fr Mvp Venous Closure Vascade - [id number] - [id number] Implanted:Qty: 1 on 11/18/2020 by Lalo Terrell MD at [facility] [employer] 08/26/2022 800-612C-1 0U / [id number] / [id number] Insurance [facility] Care Teams Speech Correction Consultant Relationship Specialty Start Date End Date Alberto Fields MD [address] [place] [phone] PCP - General Family Medicine 07/24/20
--- OUTSIDE RECORDS SUMMARY | 2024-07-22 16:44 | XMS_ITS | Clinical Summary ---
Author Organization [facility] Address [address] [facility] [address] Phone Care Team Providers Care Punch Press Setter Name Role Phone Unavailable Primary Care Provider [...]
== END 2024-07-22 16:26 | disposition home or self-care (01) ==
PROVIDERS: Emergency Provider Nurse Practitioner Family; PCP Family Medicine
DX: Z48.02 Encounter for removal of sutures (principal); I10 Essential (primary) hypertension; E78.2 Mixed hyperlipidemia; M10.9 Gout, unspecified
CPT/HCPCS: 99211; G0463

== ENCOUNTER 2024-08-20 09:45 | Emergency (ER) | payer OTHER, SELFPAY ==
--- OUTSIDE RECORDS SUMMARY | 2024-08-20 09:47 | XMS_ITS | Clinical Summary ---
Author Organization [facility] [employer] Address [address] [place] [address] Care Team Providers Care Receptionist Name Role Phone Unavailable Primary Care Provider Unavailabl e Source Comments [facility],non-owned Affiliates and Associated Physician Practices is amultiple site organization consisting of ambulatory clinics and hospital sitesin [place], [place], [place] and [place]. This disclosure is being madepursuant to the Care Everywhere program and may not contain all information available regarding this patient. 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
--- OUTSIDE RECORDS SUMMARY | 2024-08-20 09:47 | XMS_ITS | Clinical Summary ---
Author Organization [facility] Address [address] [facility] [place] [address] Phone Care Team Providers Care Glass Forming Crew Member Name Role Phone Unavailable Primary Care Provider [...]
--- OUTSIDE RECORDS SUMMARY | 2024-08-20 09:47 | XMS_ITS | Continuity of Care Document ---
Author Organization [facility] Address [address] [facility] [address] [place] [address] Phone Care Team Providers Care Precision Instrument And Tool Maker Name Role Phone Sterling Carranza PT Unavailable [...] Diagnoses Date Provider Providers Copied on Encounter [facility] [address], [place], [place], [id number], tel:[phone] [facility] No Information Dillon Katz. . Referring Provider: Access Direct. [facility] [address], [place], [place], [id number], tel:[phone] [facility] No Information Dillon Celestin . Referring Provider: Access Direct. [address], [id number], tel:[phone] [facility] No Information Dillon Celestin . Referring Provider: Access Direct. [address], [id number], tel:[phone] [facility] No Information Dillon Celestin . Referring Provider: Access Direct. [address], [id number], tel:[phone] [facility] No Information Dillon Celestin . Referring Provider: Access Direct. [address], [id number], tel:[phone] [facility] No Information Dillon Celestin . Referring Provider: Access Direct. [address], [id number], tel:[phone] [facility] No Information Dillon Celestin . Referring Provider: Access Direct. Family History Family Member Type Diagnosis Age At Onset No Information Payers Payer name Insurance type Covered democrat ID Authoriza tion(s) UMR CI [id number] Social History Type Description Quantity Date Captured [...]
--- OUTSIDE RECORDS SUMMARY | 2024-08-20 09:49 | XMS_ITS | Referral Summary ---
Author Organization [facility] [address] Address [address] [place] [address] Care Team Providers Care Photoresist Printer Name Role Phone Alberto Fields MD Primary Care Provider [phone] Allergies Active Allergy Reactions Criticality Noted Date [...] 1:20 PM CDT Height 190.5 cm (6' 3) 12/05/2020 1:20 PM CDT Body Mass Index 27.87 12/05/2020 1:20 PM CDT Plan of Treatment Not on file Medical Devices Implanted Type Area Auto Technician Device Identifier Shelf Expiration Date Model / Serial / Lot [employer] [id number] System 6-12fr Mvp Venous Closure Vascade - [id number] - [id number] Implanted:Qty: 1 on 11/18/2020 by Lalo Terrell MD at [facility] Coll[employer] 08/26/2022 800-612C-1 0U / [id number] / [id number] [employer] [id number] System 6-12fr Mvp Venous Closure Vascade - [id number] - [id number] Implanted:Qty: 1 on 11/18/2020 by Lalo Terrell MD at [facility] [employer] 09/09/2022 800-612C-1 0U / [id number] / [id number] [employer] [id number] Device Closure Vascade Od5 Fr Femoral Artery - [id number] - [id number] Implanted:Qty: 1 on 11/18/2020 by Lalo Terrell MD at [facility] [employer] 08/12/2022 700-500DX- 05U / [id number] / [id number] [employer] [id number]-[id number] System 6-12fr Mvp Venous Closure Vascade - [id number] - [id number] Implanted:Qty: 1 on 11/18/2020 by Lalo Terrell MD at [facility] [employer] 08/26/2022 800-612C-1 0U / [id number] / [id number] Insurance [facility] [place] [address] Care Teams Photoresist Printer Relationship Specialty Start Date End Date Alberto Fields MD [address] [place] [address] PCP - General Family Medicine 07/24/20
--- OUTSIDE RECORDS SUMMARY | 2024-08-20 09:49 | XMS_ITS | Clinical Summary ---
Author Organization [facility] [address] Address [address] [place] [address] Care Team Providers Care Sample Tailor Name Role Phone Alberto Fields MD Primary Care Provider [phone] Allergies Active Allergy Reactions Criticality Noted Date [...] on file Medical Devices Implanted Type Area Electrical Project Manager Device Identifier Shelf Expiration Date Model / Serial / Lot [employer] [id number]-[id number] System 6-12fr Mvp Venous Closure Vascade - [id number] - [id number] Implanted:Qty: 1 on 11/18/2020 by Lalo Terrell MD at [facility] Collagen [employer] 08/26/2022 800-612C-1 0U / [id number] / [id number] [employer] [id number]-[id number] System 6-12fr Mvp Venous Closure Vascade - [id number] - [id number] Implanted:Qty: 1 on 11/18/2020 by Lalo Terrell MD at [facility] Collagen [employer] 09/09/2022 800-612C-1 0U / [id number] / [id number] [employer] [id number] Device Closure Vascade Od5 Fr Femoral Artery - [id number] - [id number] Implanted:Qty: 1 on 11/18/2020 by Lalo Terrell MD at [facility] [employer] 08/12/2022 700-500DX- 05U / [id number] / [id number] [employer] [id number]-[id number] System 6-12fr Mvp Venous Closure Vascade - [id number] - [id number] Implanted:Qty: 1 on 11/18/2020 by Lalo Terrell MD at [facility] [employer] 08/26/2022 800-612C-1 0U / [id number] / [id number] Insurance [facility] Care Teams Sample Tailor Relationship Specialty Start Date End Date Alberto Fields MD [address] [place] [id number] PCP - General Family Medicine 07/24/20
--- OUTSIDE RECORDS SUMMARY | 2024-08-20 09:49 | XMS_ITS | Continuity of Care Document ---
Author Organization [facility] Address [address] [facility] [address] [place] [address] Phone Care Team Providers Care Water Taxi Boat Mate Name Role Phone Sterling Carranza PT Unavailable [...] Diagnoses Date Provider Providers Copied on Encounter [facility] [address], [place], [place], [id number], tel:[phone] [facility] No Information Dillon Katz. . Referring Provider: Access Direct. [facility] [address], [place], [place], [id number], tel:[phone] [facility] No Information Dillon Celestin . Referring Provider: Access Direct. [address], [id number], tel:[phone] [facility] No Information Dillon Celestin . Referring Provider: Access Direct. [address], [id number], tel:[phone] [facility] No Information Dillon Celestin . Referring Provider: Access Direct. [address], [id number], tel:[phone] [facility] No Information Dillon Celestin . Referring Provider: Access Direct. [address], [id number], tel:[phone] [facility] No Information Dillon Celestin . Referring Provider: Access Direct. [address], [id number], tel:[phone] [facility] No Information Dillon Celestin . Referring Provider: Access Direct. Family History Family Member Type Diagnosis Age At Onset No Information Payers Payer name Insurance type Covered libertarian ID Authoriza tion(s) UMR CI [id number] Social History Type Description Quantity Date Captured [...]
[2024-08-20 09:54] VITALS: BP 126/85; PULSE 58; RESP 18; TEMP 36.6; O2SAT 98
--- NOTE | 2024-08-20 09:58 | ED.EAR ---
HPI - Ear Problem General Chief complaint: Ear Stated complaint: LT Ear Pain Patient presents to the [facility] with complaints left ear feeling clogged as well as nasal congestion and nasal drainage. Patient does report a long history sinus problems this means and Flonase also attempted Sudafed yesterday without relief symptoms. Patient does report occasionally having ear infections and thought he should have this evaluated. Denies fever, chills, body aches, drainage from ear, dizziness, headache. Related Data Allergies Allergy/AdvReac Type Severity Reaction Status Date / Time Penicillins Allergy Mild Hives Verified 08/20/24 09:50 Review of Systems Constitutional: Constitutional: Reports as per HPI, Denies chills, Denies fatigue, Denies fever(s) and Denies weakness ENT: Reports as per HPI, Denies vertigo, Denies dizziness, Denies nasal congestion and Denies sore throat Cardiovascular: Cardiovascular: Reports no additional cardiovascular complaints Respiratory: Respiratory: Reports as per HPI, Denies chest congestion, Reports cough, Denies dyspnea and Denies wheezing Gastrointestinal: Gastrointestinal: Reports no additional gastrointestinal complaints Genitourinary: Genitourinary: Reports no additional male genitourinary complaints Musculoskeletal: Musculoskeletal: Reports no additional musculoskeletal complaints Integumentary/Breasts: Skin/Breast: Reports system reviewed and no additional complaints, except as docu Neurologic: Reports as per HPI, Denies dizziness and Denies headache(s) Psychiatric: Psychiatric: Reports no additional psychiatric complaints Endocrine: Endocrine: Reports no additional endocrine complaints Hematologic/Lymphatic: Hematologic/Lymphatic: Reports no additional hematologic/lymphatic complaints Allergic/Immunologic: Allergic/Immunologic: Reports as per HPI (seasonal allergies ) [facility] Past Medical History Medical History Mixed hyperlipidemia History of paroxysmal supraventricular tachycardia Essential (primary) hypertension Gout Dysfunction of both eustachian tubes Recurrent otitis media of both ears Surgical History Surgical History History of hand surgery Middle finger of right hand in 11/1997 History of radiofrequency ablation (RFA) procedure for cardiac arrhythmia 2021 Hx of tonsillectomy 1984 Family History Family History Father Hypertension Sibling Hypertension Mother Hypertension Grandparent Cerebrovascular accident Social History Social History Smoking status: Never smoker Second hand tobacco smoke exposure: No Alcohol intake: current Alcohol use details: About 1-2 drinks per month Substance use: never Substance use type: does not use Do You Feel Safe in your Home?: Yes Lack of Transportation: No Lack of Food: Never True Current Housing: I Have Housing Concerned About Future Housing: No Difficulty Paying Gas/Electric Bills: No Difficulty Paying for Meds: No Currently Unemployed: No Education: Master's Degree or Higher Difficulty w/ Childcare or Family Care: No Living arrangements: with family Occupation/Education: occupation 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 ) erythematous, with fluid behind the TM, not mobile and other (right TM normal ) Face/Nose/Sinus: Normal external nose present, Normal nares present and no nasal discharge noted Face and sinus: normal facial exam and sinuses nontender Mouth: Yes Normal oral and palatal mucosa present, Yes lip normal and Yes moist mucous membranes Throat: posterior oropharynx normal Other: left ear canal moderate swelling and erythema noted after cerumen removal Neck: Neck: no lymphadenopathy Resp: Effort & Inspection: normal respiratory effort Auscultation: clear to auscultation bilaterally Cardio: Rate: regular rate Rhythm: regular rhythm Skin: General skin exam: normal color Rashes: no rashes Wounds: no wounds Neuro: General: patient oriented x3 Speech: normal speech Gait exam (Neuro): Normal gait present Psych: Mental Status: mental status grossly normal Affect: normal affect Attitude: cooperative Course Course Level of Care: Express Care Visit Vital Signs Vital signs: Vital Signs Temperature 97.9 F 08/20/24 09:54 Pulse Rate 58 L 08/20/24 09:54 Respiratory Rate 18 08/20/24 09:54 Blood Pressure 126/85 08/20/24 09:54 Pulse Oximetry 98 08/20/24 09:54 Oxygen Delivery Room Air 08/20/24 09:54 Temperature 97.9 F 08/20/24 09:54 Pulse Rate 58 L 08/20/24 09:54 Respiratory Rate 18 08/20/24 09:54 Blood Pressure 126/85 08/20/24 09:54 Pulse Oximetry 98 08/20/24 09:54 Oxygen Delivery Room Air 08/20/24 09:54 Procedures Ear Wax Removal Left Ear: Ear Wax Removal Date: 08/20/24 Ear Wax Removal Time: 09:55 Results: Re-examined: cerumen removed completely TM Examination: TM(s) erythematous Ear Canal Exam: other (erythema with edema ) Patient Tolerated Procedure: well Complications: no problems Technique: ear canal irrigated and ear canal curetted Medical Decision Making MDM Narrative Medical decision making narrative: Cerumen removed in left ear. Noted otitis media and externa left ear. Educated patient to continue OTC medications and antibiotics. Discharge instructions reviewed with patient, as well as provided in writing per nursing staff. The instructions also include specific and strict return/GO TO THE ER as well as f/u information. All questions have been answered, and the patient deny any further questions with discharge and discharge plan. Differential Diagnosis Differential Diagnosis: Cerumen impaction, otitis media, otitis externa, ruptured eardrum, sinusitis Medical Records Medical records reviewed: Yes I reviewed the external patient's medical records. Vital Signs Vital Signs: Vital Signs Temperature 97.9 F 08/20/24 09:54 Pulse Rate 58 L 08/20/24 09:54 Respiratory Rate 18 08/20/24 09:54 Blood Pressure 126/85 08/20/24 09:54 Pulse Oximetry 98 08/20/24 09:54 Oxygen Delivery Room Air 08/20/24 09:54 Temperature 97.9 F 08/20/24 09:54 Pulse Rate 58 L 08/20/24 09:54 Respiratory Rate 18 08/20/24 09:54 Blood Pressure 126/85 08/20/24 09:54 Pulse Oximetry 98 08/20/24 09:54 Oxygen Delivery Room Air 08/20/24 09:54 Discharge Plan Discharge Clinical Impression: Otitis externa, Otitis media Patient Disposition: Home Condition: Stable Instructions: Antibiotic Form, Swimmer's Ear (ED), Ear Infection (ED) Additional Instructions: Use the ear drops in left ear as directed. Take the antibiotics until gone. Continue using lhde-hyy-ekemsve medications as needed. Follow-up with primary care provider if symptoms not improving. Patient Language: Setswana Prescriptions: No Action lisinopril 10 mg tablet 10 mg PO DAILY Qty: 90 2RF allopurinol 300 mg tablet 300 mg PO DAILY Qty: 90 2RF Follow-up/Referrals: Alberto Fields MD [Primary Care Provider] - Time of Disposition: 10:20
== END 2024-08-20 10:30 | disposition home or self-care (01) ==
PROVIDERS: Emergency Provider Nurse Practitioner Family; PCP Family Medicine
DX: H60.92 Unspecified otitis externa, left ear (principal); H66.92 Otitis media, unspecified, left ear; H61.22 Impacted cerumen, left ear; E78.2 Mixed hyperlipidemia; I10 Essential (primary) hypertension; M10.9 Gout, unspecified
CPT/HCPCS: 69210; 99212; G0463

== ENCOUNTER 2024-09-15 08:18 | Day surgery (SDC) | payer OTHER, SELFPAY ==
[2024-08-30 10:54] VITALS: BMI 29.5
[2024-09-15 08:33] VITALS: BP 130/76; PULSE 52; RESP 16; TEMP 36.4; O2SAT 99; BMI 28.5
[2024-09-15] MEDS: LACTATED RINGERS 1,000 ML 150 ML IV CONT (08:46)
--- NOTE | 2024-09-15 09:28 | P.PNAN_ITS ---
Anes - Initial Pre Proc Eval Procedure: Operation Date: 09/15/24 10:00 Proposed Procedures p Screening Colonoscopy - Ashwin Cabrera MD Date/Time: 09/15/24 09:28 Surgeon: Ashwin Cabrera MD Pre Op Diagnosis: screening colon Patient Data Age: 44 Gender: M Height: 1.91 m Weight: 103.4 kg Last Vital Signs Temp 36.4 C L 09/15/24 08:33 Pulse 52 L 09/15/24 08:33 Resp 16 09/15/24 08:33 BP 130/76 09/15/24 08:33 Pulse Ox 99 09/15/24 08:33 O2 Del Method Room Air 09/15/24 08:33 Allergies Allergy/AdvReac Type Severity Reaction Status Date / Time Penicillins Allergy Mild Hives Verified 09/15/24 08:32 Home Medications ?Medication ?Instructions ?Recorded ?Confirmed ?Type lisinopril 10 mg tablet 10 mg PO DAILY #90 tabs 04/12/24 09/15/24 Rx allopurinol 300 mg tablet 300 mg PO DAILY #90 tabs 06/09/24 09/15/24 Rx Patient hx anesthesia problems: none Family hx anesthesia problems: none Results Review: All pre-operative results and documents have been reviewed as part of the pre- operative evaluation. [facility] Past Medical History Medical History Mixed hyperlipidemia History of paroxysmal supraventricular tachycardia Essential (primary) hypertension Gout Dysfunction of both eustachian tubes Recurrent otitis media of both ears Surgical History Surgical History History of hand surgery Middle finger of right hand in 11/1997 History of radiofrequency ablation (RFA) procedure for cardiac arrhythmia 2021 Hx of tonsillectomy 1984 Family History Family History Father Hypertension Sibling Hypertension Mother Hypertension Grandparent Cerebrovascular accident Social History Social History Smoking status: Never smoker Second hand tobacco smoke exposure: No Alcohol intake: current Alcohol use details: About 1-2 drinks per month Substance use: never Substance use type: does not use Do You Feel Safe in your Home?: Yes Lack of Transportation: No Lack of Food: Never True Current Housing: I Have Housing Concerned About Future Housing: No Difficulty Paying Gas/Electric Bills: No Difficulty Paying for Meds: No Currently Unemployed: No Education: Master's Degree or Higher Difficulty w/ Childcare or Family Care: No Living arrangements: with family Occupation/Education: occupation 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 Gender identity (if verbalized by the patient): Male Sexual Orientation (if Verbalized by the Patient): Straight or Heterosexual Anes - Eval Final PreProcedure Day of Procedure 09/15/24 09:28 Patient weight: overweight Heart: regular rate and rhythm Lungs: clear to auscultation Airway: Mallampati scale class II Neurological: alert and oriented Last oral intake: >/= 8 hours ASA classification: II Emergent: no Anesthetic plan: proceed Anesthesia type and monitoring: general GIVS and standard monitoring Results Review: All pre-operative results and documents have been reviewed as part of the pre- operative evaluation. Informed Consent: The patient's anesthetic plan and its attendant risks and benefits were discussed with the patient/family/POA. Questions were solicited and answers provided to the satisfaction of the patient/family/POA.
--- NOTE | 2024-09-15 09:47 | PM.IMHP ---
H&P: HPI History of Present Illness Date/Time: 09/15/24 09:47 Chief Complaint: Screening colonoscopy Narrative: This is the patient's first colonoscopy. There are no GI symptoms and there is no family history of colorectal cancer. Review of Systems Review of Systems: All systems reviewed & are unremarkable except as noted in HPI and below PMFSH Past Medical History Medical History Mixed hyperlipidemia History of paroxysmal supraventricular tachycardia Essential (primary) hypertension Gout Dysfunction of both eustachian tubes Recurrent otitis media of both ears Surgical History Surgical History History of hand surgery Middle finger of right hand in 11/1997 History of radiofrequency ablation (RFA) procedure for cardiac arrhythmia 2021 Hx of tonsillectomy 1983 Family History Family History Father Hypertension Sibling Hypertension Mother Hypertension Grandparent Cerebrovascular accident Social History Social History Smoking status: Never smoker Second hand tobacco smoke exposure: No Alcohol intake: current Alcohol use details: About 1-2 drinks per month Substance use: never Substance use type: does not use Do You Feel Safe in your Home?: Yes Lack of Transportation: No Lack of Food: Never True Current Housing: I Have Housing Concerned About Future Housing: No Difficulty Paying Gas/Electric Bills: No Difficulty Paying for Meds: No Currently Unemployed: No Education: Master's Degree or Higher Difficulty w/ Childcare or Family Care: No Living arrangements: with family Occupation/Education: occupation 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 Gender identity (if verbalized by the patient): Male Sexual Orientation (if Verbalized by the Patient): Straight or Heterosexual Meds Home Medications and Allergies Home Medications ?Medication ?Instructions ?Recorded ?Confirmed ?Type lisinopril 10 mg tablet 10 mg PO DAILY #90 tabs 04/12/24 09/15/24 Rx allopurinol 300 mg tablet 300 mg PO DAILY #90 tabs 06/09/24 09/15/24 Rx Allergies Allergy/AdvReac Type Severity Reaction Status Date / Time Penicillins Allergy Mild Hives Verified 09/15/24 08:32 Vital Signs Vital Signs - 24 hr 09/15/24 08:33 Temperature 97.5 F L Pulse Rate 52 L Respiratory Rate 16 Blood Pressure 130/76 Pulse Oximetry 99 Oxygen Delivery Room Air Exam Const: General: cooperative and healthy appearing Resp: Effort & Inspection: normal respiratory effort and able to speak in complete sentences Auscultation: clear to auscultation bilaterally Cardio: Rate: regular rate Rhythm: regular rhythm GI: Inspection: normal to inspection GI Palp: No No hepatosplenomegaly present Auscultation: normal bowel sounds Rectal Exam: deferred Skin: General skin exam: normal color Psych: Appearance: grossly normal Mental Status: mental status grossly normal Assessment and Plan Assessment and plan (1) Encounter for screening colonoscopy: Code(s): Z12.11 - Encounter for screening for malignant neoplasm of colon Status: Acute Assessment and Plan: The patient is deemed a good candidate for the procedure. Consent signed. Will proceed.
--- NOTE | 2024-09-15 10:05 | S_PTH ---
PATIENT: Chan Jean-Baptiste LOC: [facility]#:[id number] AGE/SX: 44/M ROOM: RE09/15/[address]: Ashwin Cabrera MD : 1980 BED: DIS: 09/15/2024 SPEC #: [id number] RECD: 09/15/24 13:24 STATUS: REMI REQ #: [id number] RONEY: 09/15/24 10:[address]: Ashwin Cabrera DEPT: [facility] Surgical RECD BY: Catherine Dumont ENTERED: 09/15/24 13:25 SP TYPE: Surgical OTHR DR: Alberto Fields MD Tissues: A - Colon Polypectomy B - Colon Polypectomy Procedures: Hematoxylin and Eosin Stain Gross and Microscopic Level 4
[2024-09-15 10:09] VITALS: BP 92/48; PULSE 60; RESP 16; O2SAT 97
[2024-09-15 10:19] VITALS: BP 88/58; PULSE 60; RESP 19; O2SAT 98
[2024-09-15 10:29] VITALS: BP 102/67; PULSE 60; RESP 18; O2SAT 100
== END 2024-09-15 10:47 | disposition home or self-care (01) ==
PROVIDERS: PCP Family Medicine; Referring Provider Family Medicine; Visit Provider Internal Medicine Gastroenterology
PROC: 0DJD8ZZ Inspection of Lower Intestinal Tract, Via Natural or Artificial Opening Endoscopic (ICD-10-PCS; CPT 45378; principal; 2024-09-15 10:00)
DX: Z12.11 Encounter for screening for malignant neoplasm of colon (principal); D12.3 Benign neoplasm of transverse colon; D12.5 Benign neoplasm of sigmoid colon
CPT/HCPCS: 45385; 88305; J2003; J2704; J7120